=== PATIENT | male | born 1950 | race Hispanic/Latino ===

== ENCOUNTER 2018-08-26 13:29 | Emergency (ER) | payer MEDICARE, MEDICAID ==
--- NOTE | 2018-08-26 14:28 | Emergency Department Report ---
ED General Adult HPI - General Chief complaint: Abdominal Pain Stated complaint: FELL/ALLERGIES/ABD PAIN Time Seen by Provider: 08/26/18 14:05 Source: patient Mode of arrival: Wheelchair Limitations: Physical Limitation - History of Present Illness Initial comments: Patient is a 68-year-old male who is visiting with social issues. Patient states he is living in a motel with his sister and she started arguing with him today. Patient's told his sister if she did not stop arguing with her she he was going to call the police. The sister then threatened to call the police on him and he is told her to go ahead. When police arrived patient's apparently was told to leave the hotel and was brought here for evaluation. Patient states he is not homicidal suicidal. Patient also is hearing any voices. Patient states he just wants a prescription for his Klonopin. Patient is not sure if he is allowed to go back to the hotel. Patient initially signed in stating that he has some abdominal discomfort however he says this resolved and is secondary to being hungry. Patient has no other complaints at this time. - Related Data Previous Rx's Medication Instructions Recorded Last Taken Type clonazePAM [Klonopin] 1 mg PO QID #28 tablet 08/26/18 Unknown Rx Allergies Allergy/AdvReac Type Severity Reaction Status Date / Time fluphenazine [From Prolixin] Allergy Unknown Verified 08/26/18 13:39 ED Review of Systems ROS: Stated complaint: FELL/ALLERGIES/ABD PAIN Other details as noted in HPI Comment: All other systems reviewed and negative ED Past Medical Hx - Past Medical History Previous Medical History?: Yes Hx Psychiatric Treatment: Yes (bipolar) - Surgical History Past Surgical History?: No - Social History Smoking Status: Never Smoker Substance Use Type: None - Medications Home Medications: Home Medications Medication Instructions Recorded Confirmed Last Taken Type clonazePAM [Klonopin] 1 mg PO QID #28 tablet 08/26/18 Unknown Rx ED Physical Exam - General Limitations: Physical Limitation General appearance: alert, in no apparent distress - Head Head exam: Present: atraumatic, normocephalic - Eye Eye exam: Present: normal appearance - ENT ENT exam: Present: mucous membranes moist - Neck Neck exam: Present: normal inspection - Respiratory Respiratory exam: Present: normal lung sounds bilaterally. Absent: respiratory distress, wheezes, rales - Cardiovascular Cardiovascular Exam: Present: regular rate, normal rhythm. Absent: systolic murmur, diastolic murmur, rubs, gallop - GI/Abdominal GI/Abdominal exam: Present: soft, normal bowel sounds. Absent: distended, tenderness, guarding, rebound - Rectal Rectal exam: Present: deferred - Extremities Exam Extremities exam: Present: normal inspection - Back Exam Back exam: Present: normal inspection - Neurological Exam Neurological exam: Present: alert, oriented X3 - Psychiatric Psychiatric exam: Present: normal affect, normal mood - Skin Skin exam: Present: warm, dry, intact, normal color. Absent: rash ED Course Vital Signs 08/26/18 13:39 Temperature 98.1 F Pulse Rate 65 Respiratory 18 Rate Blood Pressure 123/72 O2 Sat by Pulse 95 Oximetry ED Medical Decision Making - Medical Decision Making Patient is a 68-year-old male who is here for social issues. Patient will be moved to a psychiatric holding area until he can be seen by our social services director. The social services director was able to find out where the patient came from. [place] go [place] living. Once the ems driver got to the senior living the patient did not want to get out unless he had his prescription which we will be writing for him here in emergency department. Patient's senior living has been notified and they have will arrange for transportation for the gentleman to go to the senior living. Critical care attestation.: If time is entered above; I have spent that time in minutes in the direct care of this critically ill patient, excluding procedure time. ED Disposition Clinical Impression: Encounter for medical clearance for patient hold Disposition: DC-01 TO HOME OR SELFCARE Is pt being admited?: No Does the pt Need Aspirin: No Condition: Stable Prescriptions: clonazePAM [Klonopin] 1 mg PO QID #28 tablet Referrals: ADDIS FELIX MD [Staff Physician] - 3-5 Days Time of Disposition: 15:53
== END 2018-08-26 21:20 | disposition home or self-care (01) ==
LOC: ED 13:29
CPT/HCPCS: 99282

== ENCOUNTER 2018-08-27 14:50 | Emergency (ER) | payer MEDICARE ==
[2018-08-27] MEDS ORDERED: ASPIRIN PO ONE (14:56)
[2018-08-27 16:03] LABS: Basophils % (Auto) 0.4 % (0.0-1.8); Eosinophils # (Auto) 0.1 K/mm3 (0.0-0.4); Eosinophils % (Auto) 1.2 % (0.0-4.3); Hematocrit 35.6 % (35.5-45.6); Hemoglobin 12.2 gm/dl (11.8-15.2); Lymphocytes % (Auto) 19.3 % (13.4-35.0); Mean Corpuscular HGB Conc 34 % (32-34); Mean Corpuscular Volume 86 fl (84-94); Monocytes # (Auto) 1.2 K/mm3 (0.0-0.8); Monocytes % (Auto) 12.1 % (0.0-7.3); Platelet Count 304 K/mm3 (140-440); Red Blood Count 4.13 M/mm3 (3.65-5.03); Red Cell Distribution Width 14.1 % (13.2-15.2)
--- NOTE | 2018-08-27 16:14 | Emergency Department Report ---
HPI - HPI HPI: Room 20 The patient is a 68-year-old male presenting with a chief complaint of medication refill. The patient states he ran out of his Klonopin, Depakote and trazodone approximately 2 days ago. Patient presents to the ED for a refill of his medications. Patient denies any complaints. The patient states he sustained in a "project" nearby and he believes it is the [employer] [place]. Patient states he does not wish to go back there Location: [See above] Duration: 2 days Quality: [See above] Severity: [See above] Modifying factors: [see above] Context: [see above] Mode of transportation: [not driving] <FELICE CHARLES - Last Filed: 08/27/18 19:48> <LIZY BADILLO - Last Filed: 08/28/18 13:23> - General Chief Complaint: Recheck/Abnormal Lab/Rx Time Seen by Provider: 08/27/18 15:11 ED Past Medical Hx - Past Medical History Hx Psychiatric Treatment: Yes (bipolar) - Surgical History Past Surgical History?: No - Family History Family history: no significant - Social History Smoking Status: Never Smoker Substance Use Type: None <FELICE CHARLES - Last Filed: 08/27/18 19:48> <LIZY BADILLO - Last Filed: 08/28/18 13:23> - Medications Home Medications: Home Medications Medication Instructions Recorded Confirmed Last Taken Type Divalproex Sodium [Depakote] 500 mg PO QDAY #60 tablet. 08/27/18 Unknown Rx clonazePAM [Klonopin] 1 mg PO QID #28 tablet 08/27/18 Unknown Rx traZODone [Desyrel] 50 mg PO QHS #60 tablet 08/27/18 Unknown Rx ED Review of Systems ROS: Stated complaint: CHEST PAIN Other details as noted in HPI Constitutional: no symptoms reported Eyes: denies: eye pain ENT: denies: throat pain Respiratory: no symptoms reported Cardiovascular: denies: as per HPI Endocrine: no symptoms reported Gastrointestinal: denies: abdominal pain Genitourinary: denies: dysuria Musculoskeletal: denies: back pain Neurological: denies: headache <FELICE CHARLES - Last Filed: 08/27/18 19:48> ROS: Stated complaint: CHEST PAIN Other details as noted in HPI <LIZY BADILLO - Last Filed: 08/28/18 13:23> Physical Exam - Physical Exam Vital Signs: Vital Signs 08/27/18 14:54 Temperature 98.8 F Pulse Rate 108 H Blood Pressure 152/90 O2 Sat by Pulse 95 Oximetry Physical Exam: GENERAL: The patient is well-developed well-nourished male lying on stretcher not appearing to be in acute distress. [] HEENT: Normocephalic. Atraumatic. Extraocular motions are intact. Patient has moist mucous membranes. NECK: Supple. Trachea midline CHEST/LUNGS: Clear to auscultation. There is no respiratory distress noted. HEART/CARDIOVASCULAR: Regular. There is no tachycardia. There is no gallop rub or murmur. ABDOMEN: Abdomen is soft, nontender. Patient has normal bowel sounds. There is no abdominal distention. SKIN: There is no rash. There is no edema. There is no diaphoresis. NEURO: The patient is awake, alert, and oriented. The patient is cooperative. The patient has normal speech MUSCULOSKELETAL: There is no evidence of acute injury. <FELICE CHARLES - Last Filed: 08/27/18 19:48> - Physical Exam Vital Signs: Vital Signs 08/27/18 08/27/18 08/27/18 14:54 16:18 17:40 Temperature 98.8 F Pulse Rate 108 H 105 H 104 H Respiratory 16 16 Rate Blood Pressure 152/90 Blood Pressure 149/107 142/71 [Left] O2 Sat by Pulse 95 96 96 Oximetry 08/27/18 08/27/18 08/27/18 18:40 18:46 19:00 Temperature Pulse Rate 109 H 105 H 98 H Respiratory 25 H 24 15 Rate Blood Pressure Blood Pressure [Left] O2 Sat by Pulse 97 Oximetry 08/27/18 08/27/18 08/27/18 19:15 19:30 19:45 Temperature Pulse Rate 103 H 99 H 105 H Respiratory 24 16 16 Rate Blood Pressure 147/72 147/72 146/60 Blood Pressure [Left] O2 Sat by Pulse 98 97 96 Oximetry 08/27/18 08/27/18 08/28/18 20:00 20:16 07:12 Temperature 98.4 F Pulse Rate 99 H 95 H 85 Respiratory 21 22 18 Rate Blood Pressure 146/60 166/88 Blood Pressure 170/79 [Left] O2 Sat by Pulse 95 96 98 Oximetry <LIZY BADILLO - Last Filed: 08/28/18 13:23> ED Course Vital Signs 08/27/18 14:54 Temperature 98.8 F Pulse Rate 108 H Blood Pressure 152/90 O2 Sat by Pulse 95 Oximetry <FELICE CHARLES - Last Filed: 08/27/18 19:48> Vital Signs 08/27/18 08/27/18 08/27/18 14:54 16:18 17:40 Temperature 98.8 F Pulse Rate 108 H 105 H 104 H Respiratory 16 16 Rate Blood Pressure 152/90 Blood Pressure 149/107 142/71 [Left] O2 Sat by Pulse 95 96 96 Oximetry 08/27/18 08/27/18 08/27/18 18:40 18:46 19:00 Temperature Pulse Rate 109 H 105 H 98 H Respiratory 25 H 24 15 Rate Blood Pressure Blood Pressure [Left] O2 Sat by Pulse 97 Oximetry 08/27/18 08/27/18 08/27/18 19:15 19:30 19:45 Temperature Pulse Rate 103 H 99 H 105 H Respiratory 24 16 16 Rate Blood Pressure 147/72 147/72 146/60 Blood Pressure [Left] O2 Sat by Pulse 98 97 96 Oximetry 08/27/18 08/27/18 08/28/18 20:00 20:16 07:12 Temperature 98.4 F Pulse Rate 99 H 95 H 85 Respiratory 21 22 18 Rate Blood Pressure 146/60 166/88 Blood Pressure 170/79 [Left] O2 Sat by Pulse 95 96 98 Oximetry <LIZY BADILLO - Last Filed: 08/28/18 13:23> ED Medical Decision Making - Lab Data Result diagrams: 08/27/18 15:42 08/27/18 15:42 - EKG Data -: EKG Interpreted by [place] EKG shows normal: sinus rhythm Rate: normal - EKG Data When compared to previous EKG there are: previous EKG unavailable Interpretation: other (right bundle-branch block. No ischemic changes seen) - Differential Diagnosis medication refill <FELICE CHARLES - Last Filed: 08/27/18 19:48> - Lab Data Result diagrams: 08/27/18 15:42 08/27/18 15:42 - Medical Decision Making Patient is a 68-year-old gentleman who was sent in from [facility] secondary to needing medication refills and not wanting to be at that facility. Patient is currently calm was been medically cleared. Patient states he actually will go back to [facility] at this time is been accepted back. Patient be discharged. <LIZY BADILLO - Last Filed: 08/28/18 13:23> Critical care attestation.: If time is entered above; I have spent that time in minutes in the direct care of this critically ill patient, excluding procedure time. <FELICE CHARLES - Last Filed: 08/27/18 19:48> Critical care attestation.: If time is entered above; I have spent that time in minutes in the direct care of this critically ill patient, excluding procedure time. <LIZY BADILLO - Last Filed: 08/28/18 13:23> ED Disposition Is pt being admited?: No Does the pt Need Aspirin: No <FELICE CHARLES - Last Filed: 08/27/18 19:48> <LIZY BADILLO - Last Filed: 08/28/18 13:23> Clinical Impression: Encounter for medical clearance for patient hold, Medication refill Disposition: DC- TO HOME OR SELFCARE Condition: Fair Prescriptions: clonazePAM [Klonopin] 1 mg PO QID #28 tablet Divalproex Sodium [Depakote] 500 mg PO QDAY #60 tablet.dr So [Desyrel] 50 mg PO QHS #60 tablet Referrals: PRIMARY CARE, [Primary Care Provider] - 3-5 Days
[2018-08-27 16:16] LABS: INR 0.91 (0.87-1.13)
[2018-08-27 16:20] LABS: BUN/Creatinine Ratio 15; Blood Urea Nitrogen 12 mg/dL (9-20); Calcium 8.7 mg/dL (8.4-10.2); Hemolysis Index 6
[2018-08-27] MEDS ORDERED: HABITROL TD ONE (18:23)
[2018-08-27] MEDS ORDERED: DESYREL PO SCH (22:00)
[2018-08-27] MEDS ORDERED: NON-FORMULARY (Clonazepam [Klonopin] 1 MG) PO SCH (22:00)
[2018-08-28 13:36] VITALS: BP 159/69
== END 2018-08-28 13:39 | disposition home or self-care (01) ==
LOC: ED 14:50
DX: F31.9 Bipolar disorder, unspecified (principal); Z76.0 Encounter for issue of repeat prescription; Z88.8 Allergy status to other drugs, medicaments and biological substances
CPT/HCPCS: 36415; 80048; 84484; 85025; 85610; 85730; 93005; 93010; 99284; G0480; 80320

== ENCOUNTER 2018-09-04 17:23 | Emergency (ER) | payer MEDICARE ==
[2018-09-04] MEDS ORDERED: VICKS SINEX NS ONE (18:15)
--- NOTE | 2018-09-04 19:30 | Emergency Department Report ---
ED ENT HPI - General Chief complaint: Nosebleed Stated complaint: NOSE BLEED Time Seen by Provider: 09/04/18 18:10 Source: patient Mode of arrival: Ambulatory Limitations: No Limitations - History of Present Illness Initial comments: This is a 68-year-old male nontoxic, well nourished in appearance, no acute signs of distress presents to the ED with c/o of nosebleed. Patient stated nosebleed started this afternoon and called EMS and was told that nosebleed stopped. Patient stated he still wanted to come to the ED for further evaluation. Patient stated it started again in the ED. Patient denies any trauma. Patient denies any nausea, vomiting, chest pain, shortness of breathe, fever, chills. Patient stated nosebleed was intermittent for a few hours. Denies heavy nose bleed. Denies dizziness or weakness. MD complaint: epistaxis -: This afternoon Severity scale (0 -10): 0 Improves with: none Worsens with: none Associated Symptoms: denies: fever, cough, gum swelling, toothache, pain with swallowing, sore throat, tinnitus, hearing loss, discharge from ear, rhinorrhea - Related Data Previous Rx's Medication Instructions Recorded Last Taken Type Divalproex Sodium [Depakote] 500 mg PO QDAY #60 tablet. 08/27/18 Unknown Rx clonazePAM [Klonopin] 1 mg PO QID #28 tablet 08/27/18 Unknown Rx traZODone [Desyrel] 50 mg PO QHS #60 tablet 08/27/18 Unknown Rx Allergies Allergy/AdvReac Type Severity Reaction Status Date / Time fluphenazine [From Prolixin] Allergy Unknown Verified 08/26/18 13:39 ED Dental HPI - General Chief complaint: Nosebleed Stated complaint: NOSE BLEED Time Seen by Provider: 09/04/18 18:10 Source: patient Mode of arrival: Ambulatory Limitations: No Limitations - Related Data Previous Rx's Medication Instructions Recorded Last Taken Type Divalproex Sodium [Depakote] 500 mg PO QDAY #60 tablet. 08/27/18 Unknown Rx clonazePAM [Klonopin] 1 mg PO QID #28 tablet 08/27/18 Unknown Rx traZODone [Desyrel] 50 mg PO QHS #60 tablet 08/27/18 Unknown Rx Allergies Allergy/AdvReac Type Severity Reaction Status Date / Time fluphenazine [From Prolixin] Allergy Unknown Verified 08/26/18 13:39 ED Review of Systems ROS: Stated complaint: NOSE BLEED Other details as noted in HPI Constitutional: denies: chills, fever Eyes: denies: eye pain, eye discharge, vision change ENT: denies: ear pain, throat pain Respiratory: denies: cough, shortness of breath, wheezing Cardiovascular: denies: chest pain, palpitations Endocrine: no symptoms reported Gastrointestinal: denies: abdominal pain, nausea, diarrhea Genitourinary: denies: urgency, dysuria Musculoskeletal: denies: back pain, joint swelling, arthralgia Skin: denies: rash, lesions Neurological: denies: headache, weakness, paresthesias Psychiatric: denies: anxiety, depression Hematological/Lymphatic: denies: easy bleeding, easy bruising ED Past Medical Hx - Past Medical History Previous Medical History?: Yes Hx Hypertension: Yes Hx Psychiatric Treatment: Yes (bipolar) - Surgical History Past Surgical History?: Yes Additional Surgical History: Tonsilectomy - Social History Smoking Status: Never Smoker Substance Use Type: None - Medications Home Medications: Home Medications Medication Instructions Recorded Confirmed Last Taken Type Divalproex Sodium [Depakote] 500 mg PO QDAY #60 tablet. 08/27/18 Unknown Rx clonazePAM [Klonopin] 1 mg PO QID #28 tablet 08/27/18 Unknown Rx traZODone [Desyrel] 50 mg PO QHS #60 tablet 08/27/18 Unknown Rx ED Physical Exam - General Limitations: No Limitations General appearance: alert, in no apparent distress - Head Head exam: Present: atraumatic, normocephalic - ENT ENT exam: Present: other (right nasal slight intermittent epitaxis. no clots or hematoma present.) - Expanded ENT Exam Expanded Ear exam: Present: normal external inspection - Neck Neck exam: Present: normal inspection, full ROM - Extremities Exam Extremities exam: Present: normal inspection, full ROM - Back Exam Back exam: Present: normal inspection, full ROM - Neurological Exam Neurological exam: Present: alert, oriented X3 - Psychiatric Psychiatric exam: Present: normal affect, normal mood - Skin Skin exam: Present: warm, dry, intact, normal color. Absent: rash ED Course Vital Signs 09/04/18 17:29 Temperature 97.4 F L Pulse Rate 79 Respiratory 16 Rate Blood Pressure 164/67 O2 Sat by Pulse 98 Oximetry - Reevaluation(s) Reevaluation #1: 09/04/18 20:09 Patient is speaking in full sentences with no signs of distress noted. ED Medical Decision Making - Medical Decision Making This is a 68-year-old male presents with epistaxis. Patient is febrile and was examined by me. I used Afrin with a nasal rocket which caused bleeding to stop. There is no foreign body or hematoma present. Patient was instructed to Follow-up with a primary care doctor in 3-5 days or if symptoms worsen and continue return to emergency room as soon as possible. At time of discharge, the patient does not seem toxic or ill in appearance. No acute signs of distress noted. Patient agrees to discharge treatment plan of care. No further questions noted by the patient. Critical care attestation.: If time is entered above; I have spent that time in minutes in the direct care of this critically ill patient, excluding procedure time. ED Disposition Clinical Impression: Epistaxis Disposition: DC-01 TO HOME OR SELFCARE Is pt being admited?: No Does the pt Need Aspirin: No Condition: Stable Instructions: Epistaxis (ED) Additional Instructions: Follow-up with a primary care doctor in 3-5 days or if symptoms worsen and c ontinue return to emergency room as soon as possible. Referrals: PRIMARY CAREMD [Referring] - 3-5 Days ADDIS EDWARDS MD [Staff Physician] - 3-5 Days [facility] [Outside] - 3-5 Days [facility] [Outside] - 3-5 Days
[2018-09-04 20:11] VITALS: BP 133/84
== END 2018-09-04 21:05 | disposition home or self-care (01) ==
LOC: ED 17:23
DX: R04.0 Epistaxis (principal); I10 Essential (primary) hypertension; F31.9 Bipolar disorder, unspecified; Z90.89 Acquired absence of other organs; Z88.8 Allergy status to other drugs, medicaments and biological substances
CPT/HCPCS: 99283